=== PATIENT | male | born 1955 | race Caucasian/White ===

== ENCOUNTER 2017-03-06 17:11 | Emergency (ER) | payer MEDICARE, OTHER ==
[~2017-03-06] VITALS: Ht 185.4 cm; Wt 132.3 kg
[2017-03-06] MEDS ORDERED: SODIUM CHLORIDE 0.9% 1,000ML IVBOLUS ONE (17:30)
[2017-03-06] MEDS ORDERED: SODIUM CHLORIDE FLUSH 10ML SYR IVF ONE (17:30)
[2017-03-06] MEDS ORDERED: ASPIRIN 81 MG TABLET CHEW PO ONE (17:30)
[2017-03-06 18:22] LABS: BLOOD UREA NITROGEN 13 mg/dL (7-18)
[2017-03-06 18:27] LABS: IS PT STATUS REG ER OR PRE ER? YES
[2017-03-06 20:02] VITALS: BP 152/92
== END 2017-03-06 20:06 | disposition home or self-care (01) ==
LOC: ED 18:38
DX: R55 Syncope and collapse (principal); I49.3 Ventricular premature depolarization
CPT/HCPCS: 36415; 71020; 80048; 82040; 83880; 84484; 85025; 93005; 96360; 99285; J7030

== ENCOUNTER → 2017-05-01 | Outpatient (CLI) | payer OTHER | END | disposition home or self-care (01) | LOC: CFH 09:37 | PROVIDERS: ATTEND Internal Medicine Cardiovascular Disease | DX: R55 Syncope and collapse (principal) | CPT/HCPCS: 93306 ==